=== PATIENT | female | born 1950 | race Caucasian/White ===

== ENCOUNTER 2017-03-19 18:57 | Emergency (ER) | payer OTHER ==
[~2017-03-19] VITALS: Ht 165.1 cm; Wt 88.5 kg
--- NOTE | ~2017-03-19 | EKG ---
[address] [address] [place] [address] ELECTROCARDIOGRAM REPORT Name: LISA KRISHNAN [facility]: [facility]OCKMichelle#: [id number] Admission: 03/19/17 Attend Phys: Discharge: 03/19/17 Date of : 46 Report #: [id number] THIS REPORT FOR: //name// [facility] ED Test Date: 2017-03-19 Test Time: 19:11:46 Pat Name: LISA KRISHNAN Department: Room: Gender: F [employer]: REBECCA : 1950 Requested By: Igor Contreras Order Number: [id number] MD: Hal Winters Measurements Intervals [place] Rate: 74 P: [place]: QRS: -72 QRSD: 167 T: 106 QT: 457 QTc: 507 Interpretive Statements Afib/flutter and ventricular-paced rhythm No further analysis attempted due to paced rhythm No previous ECG available for comparison Electronically Signed On 03-20-2017 9:51:20 CDT by Hal Winters [email or web address] <ELECTRONICALLY SIGNED> By: Hal Winters MD, [facility] 03/20/17 0951 [id number] 10 Hal Winters MD, FACC /EPI
[2017-03-19] MEDS ORDERED: XARELTO20 MG PO (19:10)
[2017-03-19] MEDS ORDERED: ESCITALOPRAM OX20 MG PO (19:11)
[2017-03-19] MEDS ORDERED: HYDROCODONE-AP1 EAC6 PO (19:12)
[2017-03-19] MEDS ORDERED: VENTOLIN HFA 1818 GM INH ×2 (19:14→20:37)
[2017-03-19] MEDS ORDERED: ADVAIR HFA 230M12 GM INH (19:15)
[2017-03-19] MEDS ORDERED: SPIRIVA INH (19:15)
[2017-03-19 19:47] LABS: HEMOGLOBIN 13.6 gm/dL (12.0-15.0); MCH 30.4 pg (26.0-34.0); MCHC 34.1 g/dL (28.0-37.0); MCV 89.1 fL (80.0-100.0); RBC 4.49 mil/uL (4.20-5.00); RDW 16.2 % (10.5-14.5)
[2017-03-19 20:00] LABS: ANION GAP 8 mmol/L (7-16); BUN 12 mg/dL (7-18); CALCIUM 9.1 mg/dL (8.5-10.1); CHLORIDE 105 mmol/L (98-107); CO2 28 mmol/L (21-32); CREATININE 0.7 mg/dL (0.6-1.0); GLUCOSE 73 mg/dL (74-106); POTASSIUM 3.8 mmol/L (3.5-5.1); SODIUM 141 mmol/L (136-145)
[2017-03-19 20:09] LABS: TROPONIN-I < 0.04 ng/mL (<0.04-0.07)
[2017-03-19] MEDS ORDERED: PREDNISONE 20 M20 MG PO (20:32)
[2017-03-19 21:12] VITALS: BP 162/81
== END 2017-03-19 21:10 | disposition home or self-care (01) ==
LOC: ER 18:57
PROVIDERS: Emergency Medicine
DX: J44.1 Chronic obstructive pulmonary disease with (acute) exacerbation (principal); I48.91 Unspecified atrial fibrillation; I50.9 Heart failure, unspecified; F17.210 Nicotine dependence, cigarettes, uncomplicated